=== PATIENT | female | born 1970 | race African-American/Black ===

== ENCOUNTER → 2025-08-06 12:11 | Outpatient (REF) | payer OTHER, SELFPAY ==
--- NOTE | 2025-08-06 14:27 | PN.DE.MGMTRT ---
Insulin Management
- -
08/06/2025: Diabetes Management Consult
55 year old female who was refereed to [facility] Diabetes office by her Negative Cutter Dr. Ayesha Van for intensive insulin management.
[facility]: HTN, HLD and T2DM. Reports that she has struggled with Diabetes for over 15 years. Reports hospitalization at [facility] in March 2025. She reports difficulty controlling her blood sugar since hospitalization. She is a registered nurse
and familiar with diabetes care. States her A1C was ~10% in March and has now worsened to 12.7%. States she was recommended to start wearing a CGM sensor a while back but did not start it until recently because it was cost prohibitive. She is now
using the [employer] Emma 3 Plus Sensor and has been using Lantus Pens and Lispro insulin vial. Her Current insulin regimen includes Lantus 25 units @ HS and Lispro sliding scale. Says she was recently prescribed Mounjaro 25 MG/0.5ML but hasn't
picked it up form the pharmacy.
Review of her CGM data shows Blood sugar readings between 176 to 355, with 36% time in range and 63% out of range
Her diet consists mainly of carbs like- cereals, past, spaghetti, popcorn apples and meet proteins. she does not exercise due to mobility issues, neuropathy and Charcot foot, managed with brace and orthotics.
Had a lengthy discussion with pt regarding diet, exercise and medication adherence, also discussed acute and chronic micro/macrovascular diabetes related complications in setting of uncontrolled diabetes.
Will initiate standing dose of short acting insulin before meals- Lispro 6 units, 1 st dose at dinner time.
Pt was instructed to continue Lantus 25 units at HS and [id number] scale short acting insulin before meals dosing based on blood sugar readings.
Discussed DSME classes and emphasized importance of nutrition self management
Will contact pt on Monday to review glucose numbers and adjust insulin dose if necessary.
Follow up in 2 weeks to reassess diabetes management.
Diabetes History
- -
Type of Diabetes: 2 requiring insulin
Pre-Admission Diabetes Regimen
Insulin Pump Settings
IP Diabetes Regimen
Patient Education
== END ==
LOC: DES 12:11
PROVIDERS: ATTENDING PHYSICIAN Internal Medicine
DX: E11.65 Type 2 diabetes mellitus with hyperglycemia (principal)
CPT/HCPCS: 99078